=== PATIENT | male | born 1990 | race Caucasian/White ===

== ENCOUNTER 2025-10-06 21:15 | Emergency (ER) | payer MEDICAID ==
[~2025-10-06] VITALS: Ht 185.4 cm; Wt 74.8 kg
[2025-10-06] MEDS ORDERED: LORAZEPAM INJ 2 MG/ML VIAL ONE (21:46)
[2025-10-06 21:47] LABS: PLATELET COUNT (AUTO) 303 K/uL (150-450); RED BLOOD CELL COUNT(AUTO) 3.96 MIL/uL (4.5-6.0); RED CELL DISTRIBUTION WIDTH 14.1 % (11.5-15.0); WHITE BLOOD COUNT (AUTO) 13.8 K/uL (4.3-11.0)
[2025-10-06] MEDS: IV NS 0.9% 1,000 ML BAG IV ONE (21:50)
[2025-10-06] MEDS: LORAZEPAM INJ 2 MG/ML VIAL IVP ONE (21:51)
[2025-10-06 22:06] LABS: ALCOHOL, BLOOD < 3 mg/dL (0-10); ASPARTATE AMINOTRANSFERASE 18 U/L (15-37); CALCIUM, SERUM 8.7 mg/dL (8.5-10.1); CREATININE 1.2 mg/dL (0.6-1.3); SODIUM SERUM 147 mmol/L (136-145); TOTAL PROTEIN, SERUM 7.9 g/dL (6.4-8.2); UREA NITROGEN, BLOOD 15 mg/dL (7-18)
[2025-10-06] MEDS: POTASSIUM CHLORIDE 20 MEQ TAB.PRT.SR PO ONE (22:39)
[2025-10-06] MEDS ORDERED: NALO4SPR BNOSTRILS (23:41)
[2025-10-07 00:51] LABS: APPEARANCE,URINE CLEAR (CLEAR); BLOOD, URINE 2+ Ery/uL (NEGATIVE); LEUKOCYTE ESTERASE ,URINE NEGATIVE (NEGATIVE); NITRITE, URINE NEGATIVE (NEGATIVE); UGLUCOSE TRACE mg/dL (NEGATIVE)
[2025-10-07 00:57] LABS: AMPHETAMINE, URINE NEGATIVE (NEGATIVE); BARBITURATE, URINE NEGATIVE (NEGATIVE); BENZODIAZEPINE, URINE NEGATIVE (NEGATIVE); COCCAINE, URINE NEGATIVE (NEGATIVE); OPIATE, URINE NEGATIVE (NEGATIVE)
[2025-10-07 00:59] LABS: CANNABINOID, URINE POSITIVE (NEGATIVE)
[2025-10-07 01:08] LABS: ADD URINE CULTURE NO; SQUAMOUS EPITHELIAL CELL,UR 0-2 /HPF (None Seen)
[2025-10-07 05:40] LABS: CALCIUM, SERUM 8.2 mg/dL (8.5-10.1); CREATININE 0.8 mg/dL (0.6-1.3); SODIUM SERUM 148 mmol/L (136-145); UREA NITROGEN, BLOOD 12 mg/dL (7-18)
[2025-10-07 09:04] VITALS: BP 138/74; TEMP 98.2; O2SAT 97
== END 2025-10-07 09:04 | disposition home or self-care (01) ==
LOC: ER 21:20
DX: F19.139 Other psychoactive substance abuse with withdrawal, unspecified (principal); E87.6 Hypokalemia; F41.9 Anxiety disorder, unspecified; Z88.0 Allergy status to penicillin; Z60.2 Problems related to living alone; Z79.899 Other long term (current) drug therapy
CPT/HCPCS: 99285; 96374; 96361; 93005 ×2; 85025; 80048 ×2; 80076; 81001; 36415 ×2; 80143 ×2; 80320; 80307; 80179; J2060; J7030; G0480